=== PATIENT | female | born 1945 | race Asian ===

== ENCOUNTER 2016-09-04 10:59 | Emergency (ER) | payer BC ==
[2016-09-04 11:08] VITALS: BP 165/83; PULSE 59; TEMP 98.6; BMI 22.3
--- NOTE | 2016-09-04 11:27 | PDOC ---
History of Present Illness - General Chief Complaint: Injury Stated Complaint: BUMP ON HEAD Time Seen by Provider: 09/04/16 11:18 History Source: Patient Exam Limitations: No Limitations - History of Present Illness Initial Comments: 09/04/16 11:22 71 yr female states a large water jug that was empty fell from the top of the fridge and hit her on the top of her head. No LOC no nausea or vomiting on dizzyness. Pt takes aggrenox. Pt has ice applied to top of her head [employer]. Pt denies headache at present. Occurred: reports: just prior to arrival, this morning Severity: reports: mild Pain Location: reports: head Method of Injury: Yes: direct blow (jug fell on head ) Past History - Past Medical History Allergies/Adverse Reactions: Allergies Allergy/AdvReac Type Severity Reaction Status Date / Time No Known Allergies Allergy Verified 09/04/16 11:07 Home Medications: Ambulatory Orders Aspirin/Dipyridamole [Aggrenox -] 1 combo PO BID #60 capsule 03/18/15 Atorvastatin Ca [Lipitor] 20 mg PO HS #30 tablet 03/18/15 Lisinopril [Prinivil] 10 mg PO DAILY #30 tablet 03/18/15 Pantoprazole Sodium [Protonix -] 40 mg PO DAILY #30 tablet.ec 03/18/15 CVA: Yes HTN: Yes - Immunization History Immunization Up to Date: Yes - Psycho/Social/Smoking Cessation Hx Anxiety: No Suicidal Ideation: No Smoking History: Never smoked Hx Alcohol Use: No Drug/Substance Use Hx: No Substance Use Type: None Hx Substance Use Treatment: No Trauma Specific PMHX - Complaint Specific PMHX Arthritis: No Back Injury: No Neck Injury: No Hx Sacro Iliac Joint Dysfunction: No Review of Systems - Review of Systems Able to Perform ROS?: Yes Is the patient limited [place] proficient: No Constitutional: No: Symptoms Reported HEENTM: No: Symptoms Reported Respiratory: No: Symptoms reported Cardiac (ROS): No: Symptoms Reported ABD/GI: No: Symptoms Reported : No: Symptoms Reported Musculoskeletal: No: Symptoms Reported Integumentary: No: Symptoms Reported Neurological: Yes: See HPI *Physical Exam - Vital Signs Last Vital Signs Temp Pulse Resp BP Pulse Ox 98.6 F 59 L 20 165/83 09/04/16 11:03 09/04/16 11:03 09/04/16 11:03 09/04/16 11:03 - Physical Exam General Appearance: Yes: Nourished, Appropriately Dressed HEENT: positive: EOMI, [place], Normal ENT Inspection, TMs Normal, Pharynx Normal Neck: positive: Supple. negative: Tender, Tender midline Respiratory/Chest: positive: Lungs Clear, Normal Breath Sounds. negative: Chest Tender Cardiovascular: positive: Regular Rhythm, Regular Rate Gastrointestinal/Abdominal: positive: Normal Bowel Sounds, Soft Lymphatic: negative: Adenopathy Musculoskeletal: positive: Normal Inspection. negative: Vertebral Tenderness, Other Extremity: positive: Normal Capillary Refill, Normal Inspection, Normal Range of Motion Integumentary: positive: Normal Color, Dry, Warm, Swelling (parietal hematoma [id number] ) Neurologic: positive: Fully Oriented, Alert, Normal Mood/Affect, Normal Response , Motor Strength 5/5 ED Treatment Course - RADIOLOGY Radiology Studies Ordered: Category Date Time Status HEAD CT WITHOUT CONTRAST [CT] Stat CT Scan 09/04/16 11:19 Ordered Medical Decision Making - Medical Decision Making 09/04/16 11:25 cc: head trauma no LOC large empty plastic jug fell from the top of the refridgerator and hit the top of her head causing small hematoma ice applied pt refused tylenol will get head CT to r/o bleed pt takes aggrenox for CVA 09/04/16 12:[address] is negative, I have placed a call to her PMD to discuss the case. 09/04/16 12:27 case discussed with covering for case discussed and plan to dc home with family and to follow up tomorrow, agrees with plan. family agrees with plan and is aware to bring pt back to ER for any changes or worsening symptoms *DC/Admit/Observation/Transfer Diagnosis at time of Disposition: Head trauma Qualifiers: Encounter type: initial encounter Qualified Code(s): S09.90XA - Unspecified injury of head, initial encounter - Discharge Dispostion Disposition: HOME Condition at time of disposition: Good - Patient Instructions Printed Discharge Instructions: DI for Closed Head Injury Additional Instructions: drink pleanty of water today and rest avoid reading, watching TV if you are having and headache take tylenol 650mg every 4-6hrs as needed apply ice every 2hrs for [address]Marina tomorrow for a follow up exam Return to ER for any worsening or concerning symptoms
== END 2016-09-04 12:37 | disposition home or self-care (01) ==
LOC: JERFT 10:59
DX: S00.03XA Contusion of scalp, initial encounter (principal); W20.8XXA Other cause of strike by thrown, projected or falling object, initial encounter; Y93.89 Activity, other specified; Y92.030 Kitchen in apartment as the place of occurrence of the external cause; I10 Essential (primary) hypertension; Z86.73 Personal history of transient ischemic attack (TIA), and cerebral infarction without residual deficits
CPT/HCPCS: 70450-TC; 99281-25